=== PATIENT | female | born 1960 | race Caucasian/White ===

== ENCOUNTER 2017-04-27 09:31 | Emergency (ER) | payer OTHER, BC | END 2017-04-27 11:55 | disposition home or self-care (01) | LOC: M ED 09:31 | DX: S80.12XA Contusion of left lower leg, initial encounter (principal); X58.XXXA Exposure to other specified factors, initial encounter; Y92.9 Unspecified place or not applicable; Y93.9 Activity, unspecified; Y99.0 Civilian activity done for income or pay; M25.762 Osteophyte, left knee; Z79.899 Other long term (current) drug therapy; Z91.040 Latex allergy status | CPT/HCPCS: 73590 ==

== ENCOUNTER 2019-01-26 07:25 | Day surgery (SDC) | payer BC, OTHER ==
[~2019-01-26] VITALS: Ht 165.1 cm; Wt 67.1 kg
[~2019-01-26 07:25] MED LIST: ATOR1TAB19 PO; AUGM0.05 EX; MONT10TA2 PO; NS 1,000 ML IV ONE
[2019-01-26] MEDS ORDERED: PROPOFOL 500 MG/50 ML VIAL As Ordered ONE (08:00)
[2019-01-26] MEDS ORDERED: LIDOCAINE 2% INJ 100 MG/5 ML SDV (FOR ANES.) As Ordered ONE (08:00)
--- NOTE | 2019-01-26 08:13 | ROOR ---
Patient Name: Azalia Golden Procedure Date: 01/26/2019 7:56 AM Date of : 1960 Age: 58 Room: [facility] Gender: Female Note Status: Finalized Procedure: Colonoscopy Indications: Screening in patient at increased risk: Family history of 1st-degree relative with colorectal cancer before age 60 years Providers: Donte VERDUZCO MD Referring MD: Nia Oseguera DO Requesting Provider: Medicines: Monitored Anesthesia Care Complications: No immediate complications. Procedure: Pre-Anesthesia Assessment: - The heart rate, respiratory rate, oxygen saturations, blood pressure, adequacy of pulmonary ventilation, and response to care were monitored throughout the procedure. The Colonoscope was introduced through the anus and advanced to the cecum, identified by appendiceal orifice and ileocecal valve. The colonoscopy was performed without difficulty. The patient tolerated the procedure well. The quality of the bowel preparation was good. Findings: The perianal and digital rectal examinations were normal. Two sessile polyps were found in the sigmoid colon. The polyps were diminutive in size. These polyps were removed with a cold snare. Resection and retrieval were complete. Multiple small and large-mouthed diverticula were found in the left colon and right colon. The exam was otherwise without abnormality on direct and retroflexion views. Impression: - Two diminutive polyps in the sigmoid colon, removed with a cold snare. Resected and retrieved. - Moderate diverticulosis in the left colon and in the right colon. - The examination was otherwise normal on direct and retroflexion views. Recommendation: - Repeat colonoscopy in 5 years for surveillance. Donte Verduzco MD Donte VERDUZCO MD 01/26/2019 8:12:41 AM Electronically signed by Donte VERDUZCO MD Number of Addenda: 0 Note Initiated On: 01/26/2019 7:56 AM Estimated Blood Loss: Estimated blood loss: none.
[2019-01-26 08:30] VITALS: BP 136/77
== END 2019-01-26 08:36 | disposition home or self-care (01) ==
LOC: M OPP 07:25
PROVIDERS: ATTEND Internal Medicine Gastroenterology
DX: Z12.11 Encounter for screening for malignant neoplasm of colon (principal); Z80.0 Family history of malignant neoplasm of digestive organs; D12.5 Benign neoplasm of sigmoid colon; K57.30 Diverticulosis of large intestine without perforation or abscess without bleeding; Z79.899 Other long term (current) drug therapy; Z91.040 Latex allergy status; Z91.048 Other nonmedicinal substance allergy status; Z87.891 Personal history of nicotine dependence; Z85.3 Personal history of malignant neoplasm of breast

== ENCOUNTER → 2020-08-11 | Outpatient (CLI) | payer BC ==
[~2020-08-11] MED LIST changes: +MONT10TA10 PO; -MONT10TA2 PO; -NS 1,000 ML IV ONE
--- NOTE | 2020-08-11 12:47 | DEXAMM ---
INDICATION: M85.80 LOW BONE DENSITY. COMPARISON: 10/23/2014 as well as other prior exams. TECHNIQUE: Bone density was measured using dual-energy x-ray absorptiometry (DEXA). FINDINGS: AP SPINE L1-L4 BMD 0.829 g/cm2 Young Adult T-Score -3.0 Age Matched Z-Score -1.7. LT FEMUR, TOTAL BMD 0.755 g/cm2 Young Adult T-Score -2.0 Age Matched Z-Score -1.1. LT NECK BMD 0.752 g/cm2 Young Adult T-Score -2.1 Age Matched Z-Score -0.8. RT FEMUR, TOTAL BMD 0.796 g/cm2 Young Adult T-Score -1.7 Age Matched Z-Score -0.8. RT NECK BMD 0.814 g/cm2 Young Adult T-Score -1.6 Age Matched Z-Score -0.4. IMPRESSION: There is osteoporosis of the spine. There is low bone density of the left hip. There is low bone density of the right hip. The density of the spine has decreased 9.9% since the initial exam on 08/12/2003. The density of the spine decreased 11.7% since most recent exam on 10/23/2014. The density of the left hip has decreased 9.4% since initial exam on 08/12/2003. The density of the left hip has decreased 7.1% since most recent exam on 10/23/2014. The density of the right hip has decreased 4.8% since the initial exam on 08/12/2003. The density of the right hip has decreased 5.4% since the most recent exam on 10/23/2014. FOLLOW-UP: Recommendation for the next bone density exam: 2 years. <Electronically signed by Eh Holbrook > 08/11/20 [id number]
== END ==
LOC: M WHC 08:56
PROVIDERS: ATTEND Nurse Practitioner Family
DX: M85.80 Other specified disorders of bone density and structure, unspecified site (principal)

== ENCOUNTER → 2020-08-11 | Outpatient (REF) | payer OTHER | LOC: M PLALAB 08:51 | PROVIDERS: ATTEND Obstetrics & Gynecology | DX: Z12.4 Encounter for screening for malignant neoplasm of cervix (principal); N95.2 Postmenopausal atrophic vaginitis; Z77.9 Other contact with and (suspected) exposures hazardous to health | CPT/HCPCS: 87624; G0123 ==

== ENCOUNTER 2024-01-06 16:08 | Emergency (ER) | payer BC ==
[~2024-01-06] VITALS: Ht 165.1 cm; Wt 71.9 kg
[~2024-01-06 16:08] MED LIST changes: -MONT10TA10 PO; +MONT10TA97 PO
[2024-01-06] MEDS ORDERED: CELE0.09 (16:19)
[2024-01-06] MEDS ORDERED: LEVOTAB10 (16:19)
[2024-01-06] MEDS: ACETAMINOPHEN TAB 650MG DOSE (2X325MG) PO ONE (17:12)
[2024-01-06 18:20] VITALS: BP 154/81; TEMP 97.6; O2SAT 98
== END 2024-01-06 18:32 | disposition home or self-care (01) ==
LOC: M ED 16:08
DX: S52.124A Nondisplaced fracture of head of right radius, initial encounter for closed fracture (principal); S20.211A Contusion of right front wall of thorax, initial encounter; W01.0XXA Fall on same level from slipping, tripping and stumbling without subsequent striking against object, initial encounter; Y92.009 Unspecified place in unspecified non-institutional (private) residence as the place of occurrence of the external cause; Y93.89 Activity, other specified; Y99.9 Unspecified external cause status; Z79.02 Long term (current) use of antithrombotics/antiplatelets; Z79.899 Other long term (current) drug therapy

== ENCOUNTER → 2024-12-18 | Outpatient (CLI) | payer BC ==
[~2024-12-18] MED LIST changes: -AUGM0.05 EX; +AUGM0.0511 EX; +CELE0.09; +LEVOTAB10
== END ==
LOC: M WHC 10:34
PROVIDERS: ATTEND Specialist
DX: Z12.31 Encounter for screening mammogram for malignant neoplasm of breast (principal); R92.333 Mammographic heterogeneous density, bilateral breasts
CPT/HCPCS: 77067; G0279